=== PATIENT | male | born 1960 | race Caucasian/White ===

== ENCOUNTER 2022-01-25 15:59 | Emergency (ER) | payer OTHER, BC ==
[2022-01-25 16:42] VITALS: PULSE 90
[2022-01-25] MEDS ORDERED: Ketorolac 30 MG/ML SDV IM ONE (16:51)
[2022-01-25 18:56] VITALS: BP 142/90
== END 2022-01-25 18:45 | disposition home or self-care (01) ==
LOC: JD.ED 15:59
DX: S86.912A Strain of unspecified muscle(s) and tendon(s) at lower leg level, left leg, initial encounter (principal); E78.00 Pure hypercholesterolemia, unspecified; I10 Essential (primary) hypertension; Z79.899 Other long term (current) drug therapy; V03.90XA Pedestrian on foot injured in collision with car, pick-up truck or van, unspecified whether traffic or nontraffic accident, initial encounter
CPT/HCPCS: 73562; 96372; 99283; J1885